=== PATIENT | female | born 1940 | race Caucasian/White ===

== ENCOUNTER 2017-05-24 06:50 | Day surgery (SDC) | payer MEDICARE, OTHER ==
[~2017-05-24] VITALS: Ht 157.5 cm; Wt 62.6 kg
[~2017-05-24 06:50] MED LIST: LEVOTHYROXINE100 MCG PO; LIPITOR20 MG PO; OMEPRAZOLE20 M1 PO; SERTRALINE HCL100 MG PO; VITAMIN B-121000 MCG PO; VITAMIN D31000 UNI1 PO
--- NOTE | 2017-05-24 10:24 | NUR ---
05/24/17 Ritu Reynoso PT [place]. PT UNABLE TO REPORT WHETHER SHE IS HAVING PAIN. PT CONTINUES TO MOAN W/RN REASSURANCE.
--- NOTE | 2017-05-24 10:58 | NUR ---
PT RELAXING IN BED. DOESN'T SEEM TO BE BOTHERED THAT HER SURGERY IS PUSHED BACK BY EMERGENCY. SEEMS TO BE ALMOST ENJOYING THE MOMENT. PT SEEMS PREPARED FOR TODAY, FEW QUESTIONS. REQUESTED PRAYER, WILL FOLLOW NEEDED
[2017-05-24] MEDS ORDERED: NORCO 5-325 TA1 EACH PO (12:13)
--- NOTE | 2017-05-24 12:47 | NUR ---
RATES PAIN 11/02. ATE JELLO CRACKERS DRANK WATER. DECLINES OFFER OF ANYTHING ELSE. WANTS TO GO HOME. DRESSED AMB TO BR AGAIN. HERE TO TAKE PT HOME.
--- NOTE | 2017-05-25 15:20 | OR ---
[facility] [address], [place] [address] Signed DATE OF PROCEDURE: 05/24/17 PREOPERATIVE DIAGNOSES Choledocholithiasis, now cleared. Periampullary duodenal diverticulum. POSTOPERATIVE DIAGNOSES Chronic cholecystitis. Cholesterolosis. PROCEDURE Laparoscopic cholecystectomy with intraoperative cholangiogram. ESTIMATED BLOOD LOSS: None. FINDINGS Rachel has mildly dilated cystic duct and common bile duct. There was just a tiny kink in the distal common bile duct as it goes through the ampulla. However, with gentle pressure, the contrast went right through. We saw no evidence of any filling defects in the gallbladder or the bile ducts. She did have fairly significant sludge with cholesterolosis and chronic inflammatory changes to her gallbladder. INDICATIONS Rachel is a 76-year-old female who earlier this year had presented with intermittent nausea and vomiting. Her CT scan showed several duodenal diverticula with dilation of common bile duct around 11 mm. The bile duct was dilated back into the right intrahepatic biliary tract. There was a punctate focus of density either in her common bile duct or in the head of the pancreas. It was most likely a stone but possibly calcification in the head of the pancreas or even a brightly enhancing blood vessel. She had been asked to see me locally as a general surgeon. I recommended she check in with one of our game preserve manager. She wanted to be close to home, so she went to see Dr. Russo. During the ERCP, he noticed that she does have a periampullary diverticulum. He was not able to perform a sphincterotomy. He did cannulate the pancreatic duct twice. Afterward, she had just a little pancreatitis but resolved nicely. She then went down to [place] to see Dr. Paco Lanier who was able to perform endoscopic ultrasound. A thorough surveillance of the area was undertaken and everything seemed to be fine. The bright enhancing lesion in the head of the pancreas seems to have passed. As expected, Dr. Lanier recommended she have her gallbladder removed as a potential source of ongoing gallstones. Therefore, she came back to my office with respect to the above. We once again had a long discussion. Once again, I gave her [employer] brochure on the gallbladder. We looked at the pictures and went through that in great detail. She understands laparoscopic versus open cholecystectomy. She understands expected intra and postop Electronically Signed By: JOSE JUAN BALDERAS MD 05/25/17 1520 PATIENT NAME: RACHEL SMITH JANUARY OPERATIVE REPORT DATE OF : 44 PHYSICIAN: JOSE JUAN BALDERAS MD REPORT #: [id number] REPORT IS CONFIDENTIAL AND NOT TO BE RELEASED WITHOUT AUTHORIZATION [facility] [address] [place] [id number] Signed course. There is risk including but not limited to bleeding, infection, scarring, change in contour of the skin, damage to bowel, damage to main bile duct, incisional hernias and other unforeseen comorbidities. She had expressed understanding and wished to proceed. PROCEDURE NOTE Rachel was taken into our operating room and placed in the supine position under general endotracheal tube anesthesia. She was given preoperative antibiotics along with subcutaneous heparin. SCDs were utilized. She was then prepped and draped in the usual sterile fashion. We placed our initial Merlyn trocar above the umbilicus under direct visualization without difficulty. We could see the omentum had some adhesions from the midline across the right upper quadrant. Therefore, a 5 mm trocar was inserted just above the umbilicus in the midline and we used the laparoscopic Metzenbaum scissors to take down the adhesions to clear off the access to our right upper quadrant. We then placed our remaining trocars under direct visualization without difficulty. We had taken pictures throughout for photo documentation. We immediately could see the chronic inflammatory changes of gallbladder and the gallbladder was a ana color in nature. It took a few minutes to take down the surrounding adhesions from the fat. The triangle of Calot was then dissected free and we then performed our intraoperative cholangiogram. The intraoperative cholangiogram showed the chronically dilated cystic and common bile duct. There was just a little kink in the distal common bile duct as it went through the ampulla of Otter, but the contrast went through with gentle pressure. The bile in the bile duct was very light yellow green color and seemed to be quite fine. We secured the cystic duct stump with a PDS Endoloop and 2 clips were placed on the cystic duct stump to hamlet its location. The gallbladder was then carefully removed from the gallbladder fossa and placed into an EndoCatch bag. We placed a clip across the cystic artery and it had been divided. The right upper quadrant was then irrigated and suctioned out until clear. We used our laparoscopic suturing device to pass 0 Vicryl suture on either side of the fascia of the subxiphoid trocar site. This was tied down to close this fascia primarily. After this, the gas was allowed to escape and all trocars were removed along with the gallbladder. The gallbladder was opened on the back table by our circulating nurse. It clearly showed the yellow cholesterolosis and the chronic inflammatory changes. We then closed the fascia of the supraumbilical trocar site with interrupted and [id number] 0 Vicryl sutures. Local anesthetic was injected in all trocar sites. Each trocar site was irrigated and suctioned out until clear. The skin and dermis of each trocar site was then closed with interrupted 3-0 subcuticular Monocryl sutures. Dry gauze and tape was then applied to all incisions. Rachel was then awakened from anesthesia, extubated in the OR and taken to recovery room in stable condition. Electronically Signed By: JOSE JUAN BALDERAS MD 05/25/17 1520 PATIENT NAME: RACHEL SMITH JANUARY OPERATIVE REPORT DATE OF : 44 PHYSICIAN: JOSE JUAN BALDERAS MD REPORT #: [id number] REPORT IS CONFIDENTIAL AND NOT TO BE RELEASED WITHOUT AUTHORIZATION [address] [id number] Signed MD LIANE Honeycutt/Serjio /[id number] cc: IRVING Jenkins MD James Regan, MD Electronically Signed By: JOSE JUAN BALDERAS MD 05/25/17 1520 PATIENT NAME: RACHEL SMITH JANUARY OPERATIVE REPORT DATE OF : 44 PHYSICIAN: JOSE JUAN BALDERAS MD REPORT #: [id number] REPORT IS CONFIDENTIAL AND NOT TO BE RELEASED WITHOUT AUTHORIZATION
== END 2017-05-24 12:40 | disposition home or self-care (01) ==
LOC: DS 06:50
PROVIDERS: Colon & Rectal Surgery
PROC: BF13YZZ Fluoroscopy of Gallbladder and Bile Ducts using Other Contrast (ICD-10-PCS; 2017-05-24)
PROC: 0FT44ZZ Resection of Gallbladder, Percutaneous Endoscopic Approach (ICD-10-PCS; principal; 2017-05-24 08:45)
DX: K81.1 Chronic cholecystitis (principal); K21.9 Gastro-esophageal reflux disease without esophagitis; E78.5 Hyperlipidemia, unspecified; E03.9 Hypothyroidism, unspecified; M85.80 Other specified disorders of bone density and structure, unspecified site; F32.9 Major depressive disorder, single episode, unspecified; Z88.5 Allergy status to narcotic agent; Z87.891 Personal history of nicotine dependence; Z79.899 Other long term (current) drug therapy
CPT/HCPCS: 00790; 74300; 88304; J0330; J0690; J1100; J1170; J1644; J1885; J2250; J2405; J2704; J3010; J7120; Q9967

== ENCOUNTER 2017-07-03 08:37 | Day surgery (SDC) | payer MEDICARE, OTHER ==
[~2017-07-03] VITALS: Ht 157.5 cm; Wt 61.2 kg
[~2017-07-03 08:37] MED LIST changes: +NORCO 5-325 TA1 EACH PO
== END 2017-07-03 10:38 | disposition home or self-care (01) ==
LOC: DS 08:37 → OPS 08:37 → DS 09:45 → OPS 10:38
PROC: 08RK3JZ Replacement of Left Lens with Synthetic Substitute, Percutaneous Approach (ICD-10-PCS; principal; 2017-07-03)
DX: H25.12 Age-related nuclear cataract, left eye (principal); K21.9 Gastro-esophageal reflux disease without esophagitis; F32.9 Major depressive disorder, single episode, unspecified; Z88.5 Allergy status to narcotic agent; Z87.891 Personal history of nicotine dependence; Z79.899 Other long term (current) drug therapy
CPT/HCPCS: 140